=== PATIENT | male | born 1970 | race Caucasian/White ===

== ENCOUNTER → 2017-06-16 | Outpatient (CLI) | payer OTHER ==
[~2017-06-16] MED LIST: ALBUTEROL17 GM NEB; ALPRAZOLAM PO; BACTRIM DS TABL1 TAB PO; DETROL LA PO; HYDROCODON-ACE1 EAC9 PO; KLONOPIN0.5 MG PO; OXYGEN; PERCOCET7.5 PO; PRILOSEC PO
--- NOTE | ~2017-06-16 | CR63 ---
[facility]. [facility] A Service of [facility] & [facility] RADIOLOGY TEXT RESULTS PATIENT: SASHA SORIANO LOCATION: [facility] : 66 UNIT #: [id number] AGE: [address]: Jostin Real MD SEX: M ORDER DR: [id number] [address] [address] [id number] O MR#: [id number] Acc #: [id number] NAME: SASHA SORIANO : 1970 SEX: M STUDY DATE/TIME: 06/16/2017 15:10 UNIT: [facility] ROOM: STUDY DESCRIPTION: CR Chest 2 View Attending Physician: Jostin Real M.D. Referring Physician: Jostin Real M.D. Ordering Physician: Jostin Real M.D. Primary Care Physician: Jostin Real M.D. MEDICAL IMAGING REPORT This report is preliminary unless electronic signature is present. EXAM Chest, 06/16/2017 HISTORY 46-year-old male patient with bilateral posterior lung pain. Pain left iliac crest. Diminished lung sounds. Symptoms 1-1/2 years. COMPARISON Chest, 03/05/2015 FINDINGS PA and lateral chest views show normal cardiac size and configuration. Hilar structures and mediastinal contours are preserved. Lungs are fully expanded. Mild interstitial prominence is again noted. There are no infiltrates. I see no mass and no effusion. IMPRESSION Mild interstitial prominence which appears to be chronic. No acute chest finding. Dictated by... El Fernandez M.D. THIS IS AN ELECTRONICALLY VERIFIED REPORT El Fernandez M.D. at 06/17/2017 9:37 AM Prashant TD: 06/17/2017 09:09 JOB #: [id number] MEDICAL IMAGING REPORT Page 1 of 1
--- NOTE | ~2017-06-16 | CR206 ---
[facility] A Service of [facility] & [facility] RADIOLOGY TEXT RESULTS PATIENT: SASHA SORIANO LOCATION: [facility] : 66 UNIT #: [id number] AGE: [address]: Jostin Real MD SEX: M ORDER DR: [id number] [place] [id number] O MR#: [id number] Acc #: [id number] NAME: SASHA SORIANO : 1970 SEX: M STUDY DATE/TIME: 06/16/2017 15:10 UNIT: [facility] ROOM: STUDY DESCRIPTION: CR Pelvis 1 or 2 Views Attending Physician: Jostin Real M.D. Referring Physician: Jostin Real M.D. Ordering Physician: Jostin Real M.D. Primary Care Physician: Jostin Real M.D. MEDICAL IMAGING REPORT This report is preliminary unless electronic signature is present. EXAM Pelvis, 06/16/2017. HISTORY 46-year-old male with left pelvic pain for 1 1/[address] abdomen and pelvis, 11/05/2009. FINDINGS Single AP view of the pelvis demonstrates no acute fracture or dislocation. Bony pelvis, sacrum, SI joints intact. Soft tissues are unremarkable. IMPRESSION Unremarkable pelvis. Dictated by... Dwaine Price M.D. THIS IS AN ELECTRONICALLY VERIFIED REPORT Dwaine Price M.D. at 06/20/2017 1:15 PM MARV/kevin TD: 06/17/2017 10:20 JOB #: [id number] MEDICAL IMAGING REPORT Page 1 of 1
== END | disposition home or self-care (01) ==
LOC: SRAD 14:55
DX: R10.2 Pelvic and perineal pain (principal); R09.89 Other specified symptoms and signs involving the circulatory and respiratory systems
CPT/HCPCS: 71020; 72170